=== PATIENT | female | born 1975 | race Caucasian/White ===

== ENCOUNTER 2017-10-21 07:00 | Emergency (ER) | payer BC ==
[~2017-10-21] VITALS: Ht 152.4 cm; Wt 70.8 kg
[2017-10-21 08:23] LABS: UA SPECIFIC GRAVITY >=1.030 (1.005-1.035); microscopic required? YES; urine erythrocyte 2+ (NEGATIVE)
[2017-10-21 11:32] VITALS: BP 104/63
== END 2017-10-21 11:32 | disposition home or self-care (01) ==
LOC: ED 07:00
PROVIDERS: Emergency Medicine Emergency Medical Services
DX: R07.2 Precordial pain (principal); N39.0 Urinary tract infection, site not specified; Z90.710 Acquired absence of both cervix and uterus; Z88.0 Allergy status to penicillin